=== PATIENT | female | born 1930 ===

== ENCOUNTER 2017-03-29 19:51 | Observation (INO) | payer MEDICARE, OTHER ==
[2017-03-29 19:51] VITALS: BMI 18.3
--- NOTE | 2017-03-29 20:39 | ED PDOC ---
HPI: Chest Pain Time Seen by Provider: 03/29/17 20:15 Chief Complaint (Nursing): Lower Extremity Problem/Injury History Per: Patient History/Exam Limitations: no limitations Onset/Duration Of Symptoms: Days Current Symptoms Are (Timing): Still Present Modifying Factors: None Additional Complaint(s): Hx of CABG, CAD w/ stent, HTN, HLD p/w intermittent palpitations for the past 3 days, chest pressure, occasional SOB, also w/ body aches in bilateral knees and arms. States she's been on muscle relaxant as prescribed by Dr. Gaviria without relief but has been suffering dizziness as well. States she's compliant with her medications. - Risk Factors TAD Risk Factors: Pos: Hypertension Past Medical History Reviewed: Historical Data, Nursing Documentation, Vital Signs Vital Signs: Last Vital Signs Temp 98.5 F 03/29/17 20:00 Pulse 68 03/29/17 21:58 Resp 17 03/29/17 20:00 BP 147/75 03/29/17 21:58 Pulse Ox 99 03/29/17 20:43 - Medical History PMH: Bronchitis, CAD, HTN, Hypercholesterolemia - Surgical History Surgical History: CABG, Pacemaker - Family History Family History: States: Unknown Family Hx - Home Medications Home Medications: Ambulatory Orders Medication Instructions Recorded Alprazolam [Alprazolam] 0.5 mg PO BID 06/18/14 Carvedilol Phosphate [Coreg Cr] 20 mg PO DAILY 06/18/14 Clopidogrel [Plavix] 81 mg PO DAILY 06/18/14 Esomeprazole Magnesium [Nexium] 40 mg PO DAILY 06/18/14 Ezetimibe [Zetia] 10 mg PO DAILY 06/18/14 Valsartan [Diovan] 80 mg PO DAILY 06/18/14 Aspirin [Treutlen Aspirin] 81 mg PO DAILY 07/27/16 Folic Acid [Folic Acid] 1 mg PO DAILY 07/27/16 Sertraline HCl [Zoloft] 25 mg PO DAILY 07/27/16 - Allergies Allergies/Adverse Reactions: Allergies Allergy/AdvReac Type Severity Reaction Status Date / Time iodine Allergy RASH Verified 03/29/17 20:05 CATHERINE Risk Score for UA/NSTEMI - CATHERINE Risk Score Age > 64: YES 3 or more CAD Risk Factors: YES Known CAD (Stenosis greater than 50%): YES Aspirin use in past 7 days: NO Severe Angina: NO EKG ST changes greater than 0.5mm: NO Positive Cardiac Marker: NO CATHERINE Score: 3 Risk %: 13% Curb-65 Severity Score - CURB-65 Severity Score Confusion: No Age >64: Yes Curb-65 Score: 1 Percentage 30-day mortality: 2.7% Review of Systems ROS Statement: Except As Marked, All Systems Reviewed And Found Negative Cardiovascular: Positive for: Chest Pain, Palpitations Respiratory: Positive for: Shortness of Breath Musculoskeletal: Positive for: Arm Pain, Leg Pain Physical Exam - Reviewed Nursing Documentation Reviewed: Yes Vital Signs Reviewed: Yes - Physical Exam Appears: Positive for: Well, Non-toxic, No Acute Distress Head Exam: Positive for: ATRAUMATIC, NORMAL INSPECTION, NORMOCEPHALIC Skin: Positive for: Normal Color, Warm, DRY Eye Exam: Positive for: EOMI, Normal appearance, PERRL ENT: Positive for: Normal ENT Inspection Neck: Positive for: Normal, Painless ROM Cardiovascular/Chest: Positive for: Regular Rate, Rhythm Respiratory: Positive for: CNT, Normal Breath Sounds Gastrointestinal/Abdominal: Positive for: Normal Exam, Bowel Sounds, Soft Back: Positive for: Normal Inspection Extremity: Positive for: Normal ROM Neurologic/Psych: Positive for: Alert, Oriented - Laboratory Results Result Diagrams: 03/29/17 20:45 03/29/17 20:45 - ECG ECG Rhythm: Positive for: Normal QRS, Normal ST Segment, Sinus Rhythm O2 Sat by Pulse Oximetry: 99 Pulse Ox Interpretation: Normal Medical Decision Making Medical Decision Making: PT. w/ multiple cardiac RF's p/w CP, SOB, palpitations, body aches. EKG NSR, no STEMI, Will check cardiac enzymes and admit for OBS for continuous telemetry monitoring and serial cardiac enzymes. Dr. Lloyd consulted, states patient has pain in pacemaker pulse generator area. Agrees to consult on patient. Will admit. Disposition - Clinical Impression Clinical Impression: Chest pain, Palpitations - Disposition Disposition Time: 22:30 Condition: STABLE
[2017-03-29 20:56] LABS: BASO # 0.1 K/uL (0.0-0.2); EOS # 0.1 K/uL (0.0-0.7); EOS % 1.4 % (0.0-4.0); HEMATOCRIT 35.3 % (34.0-47.0); LYMPH # 1.3 K/uL (1.0-4.3); LYMPH % 21.6 % (20.0-40.0); MEAN CELL VOLUME 91.1 fl (81.0-99.0); MEAN CORPUSCULAR HEMOGLOBIN 29.9 pg (27.0-31.0); MEAN CORPUSCULAR HGB CONC 32.9 g/dL (33.0-37.0); MEAN PLATELET VOLUME 8.5 fl (7.2-11.7); MONO # 0.5 K/uL (0.0-0.8); MONO % 8.3 % (0.0-10.0); NEUT % 67.7 % (50.0-75.0); NRBC % 0.1 % (0.0-0.0); RED CELL DISTRIBUTION WIDTH 13.2 % (11.5-14.5); WHITE BLOOD COUNT 5.8 K/uL (4.8-10.8)
[2017-03-29 21:07] LABS: PARTIAL THROMBOPLASTIN TIME 27.2 Seconds (25.6-37.1)
[2017-03-29 21:17] LABS: BLOOD UREA NITROGEN 16 mg/dl (7-17); CALCIUM 9.5 mg/dL (8.4-10.2); CARBON DIOXIDE 29 mmol/L (22-30); CHLORIDE 99 mmol/L (98-107); GFR AFRICAN-AMERICAN > 60; GLUCOSE,RANDOM 138 mg/dL (65-105); POTASSIUM 4.3 MMOL/L (3.6-5.0); SODIUM 137 mmol/l (132-148)
[2017-03-30 04:49] VITALS: O2SAT 99
[2017-03-30 05:21] LABS: RBC URINE 4 /hpf (0-3); URINE BILIRUBIN NEGATIVE (NEGATIVE); URINE BLOOD SMALL (NEGATIVE); URINE COLOR YELLOW (YELLOW); URINE GLUCOSE (UA) NEG (Normal); URINE KETONE NEGATIVE (NEGATIVE); URINE LEUKOCYTE ESTERASE NEG Leu/uL (Negative); URINE PROTEIN NEGATIVE (NEGATIVE); URINE UROBILINOGEN 0.2-1.0 mg/dL (0.2-1.0); WBC URINE 2 /hpf (0-5)
[2017-03-30 06:49] LABS: BASO % 0.6 % (0.0-2.0); EOS # 0.1 K/uL (0.0-0.7); EOS % 1.8 % (0.0-4.0); HEMATOCRIT 32.5 % (34.0-47.0); LYMPH # 1.2 K/uL (1.0-4.3); LYMPH % 21.1 % (20.0-40.0); MEAN CELL VOLUME 90.2 fl (81.0-99.0); MEAN CORPUSCULAR HEMOGLOBIN 30.3 pg (27.0-31.0); MEAN CORPUSCULAR HGB CONC 33.6 g/dL (33.0-37.0); MEAN PLATELET VOLUME 8.8 fl (7.2-11.7); MONO # 0.6 K/uL (0.0-0.8); MONO % 10.2 % (0.0-10.0); NEUT # 3.7 K/uL (1.8-7.0); NEUT % 66.3 % (50.0-75.0); RED CELL DISTRIBUTION WIDTH 13.1 % (11.5-14.5); WHITE BLOOD COUNT 5.6 K/uL (4.8-10.8)
[2017-03-30 06:51] LABS: ALB/GLOB RATIO 1.7 (1.0-2.1); ALKALINE PHOSPHATASE 59 U/L (38-126); ALT/SGPT 38 U/L (9-52); AST/SGOT 35 U/L (14-36); BILIRUBIN,TOTAL 0.3 mg/dl (0.2-1.3); BLOOD UREA NITROGEN 22 mg/dl (7-17); CALCIUM 9.3 mg/dL (8.4-10.2); CARBON DIOXIDE 29 mmol/L (22-30); CHLORIDE 102 mmol/L (98-107); CHOLESTEROL 156 mg/dL (0-199); GFR AFRICAN-AMERICAN > 60; GLUCOSE,RANDOM 99 mg/dL (65-105); POTASSIUM 4.6 MMOL/L (3.6-5.0); SODIUM 138 mmol/l (132-148); TOTAL PROTEIN 6.2 G/DL (6.3-8.2)
[2017-03-30 07:07] LABS: T4 6.76 ug/dl (5.5-11.0)
[2017-03-30 07:21] LABS: THYROID STIMULATING HORMONE 3.63 mIU/ML (0.46-4.68)
[2017-03-30 07:51] VITALS: RESP 18
[2017-03-30] MEDS ORDERED: Pantoprazole 40 mg EC Tab PO SCH (09:00)
[2017-03-30] MEDS ORDERED: VALSARTAN PO SCH (09:00)
[2017-03-30] MEDS ORDERED: ALPRAZOLAM 0.5 MG PO SCH (09:00)
[2017-03-30] MEDS ORDERED: CARVEDILOL PHOSPHATE 20 MG PO SCH (09:00)
--- NOTE | 2017-03-30 10:30 | CP.PCM.CON ---
History of Present Illness - History of Present Illness History of Present Illness: THE PATIENT IS AN 86 YEAR OLD FEMALE WITH A HISTORY OF CAD WITH AN OLD IWMI, CABGS, STENT INSERTIONS, DEFIBRILLATOR, HYPERTENSION, HYPERLIPIDEMIA, GERDS, OA AND ANXIETY. SHE ALWAYS HAD CHEST WALL PAIN AT THE PACEMAKER SURGICAL SITE SINCE IT WAS INSERTED AND OFTEN COMES TO THE OFFICE FOR THIS COMPLAINT. SHE NOW STATES THAT SHE WAS STARTED ON A NEW MUSCLE RELAXANT RECENTLY AND NOW HAS MANY COMPLAINTS INCLUDING DIZZINESS, HEADACHES, NECK PAIN, LEG PAIN AND SOME CHEST DISCOMFORT. SHE CAME TO THER ER WITH THESE COMPLAINTS AND WAS ADMITTED TO OBSERVATION. I FOLLOW HER IN THE OFFICE AND WAS ASKED TO SEE HER. Past Patient History - Past Social History Smoking Status: Never Smoked - CARDIAC Hx Hypercholesterolemia: Yes Hx Hypertension: Yes Hx Pacemaker: Yes - PULMONARY Hx Bronchitis: Yes - PSYCHIATRIC Hx Substance Use: No - SURGICAL HISTORY Hx Coronary Artery Bypass Graft: Yes Meds Allergies/Adverse Reactions: Allergies Allergy/AdvReac Type Severity Reaction Status Date / Time iodine Allergy RASH Verified 03/29/17 20:05 - Medications Medications: Current Medications Alprazolam (Xanax) 0.5 mg PO BID [facility] Last Admin: 03/30/17 09:18 Dose: 0.5 mg Aspirin (Aspirin Chewable) 81 mg PO DAILY [facility] Last Admin: 03/30/17 09:20 Dose: 81 mg Carvedilol (Coreg) 6.25 mg PO BID [facility] Last Admin: 03/30/17 09:18 Dose: 6.25 mg Clopidogrel Bisulfate (Plavix) 75 mg PO DAILY [facility] Last Admin: 03/30/17 09:19 Dose: 75 mg Ezetimibe (Zetia) 10 mg PO DAILY [facility] Last Admin: 03/30/17 09:18 Dose: 10 mg Folic Acid (Folic Acid) 1 mg PO DAILY [facility] Last Admin: 03/30/17 09:18 Dose: 1 mg Pantoprazole Sodium (Protonix Ec Tab) 40 mg PO DAILY [facility] Last Admin: 03/30/17 09:20 Dose: 40 mg Sertraline HCl (Zoloft) 25 mg PO DAILY [facility] Last Admin: 03/30/17 09:18 Dose: 25 mg Valsartan (Diovan) 160 mg PO DAILY [facility] Last Admin: 03/30/17 09:19 Dose: 160 mg Physical Exam - Respiratory Exam Respiratory Exam: Clear to Auscultation Bilateral - Cardiovascular Exam Cardiovascular Exam: REGULAR RHYTHM, +S1, +S2 Additional comments: CHEST WALL TENDERNESS OVER THE PACEMAKER SITE - Extremities Exam Extremities exam: Positive for: normal inspection - Additional Findings Additional findings: EKG NSR TROPONIN NORMAL Results - Vital Signs Recent Vital Signs: Last Vital Signs Temp 98.2 F 03/30/17 07:51 Pulse 62 03/30/17 09:18 Resp 18 03/30/17 07:51 BP 150/63 03/30/17 09:18 Pulse Ox 99 03/30/17 07:51 - Labs Result Diagrams: 03/30/17 05:20 03/30/17 05:20 Labs: Laboratory Results - last 24 hr 03/30/17 03/30/17 03/30/17 04:38 05:20 05:20 WBC 5.6 RBC 3.61 L Hgb 10.9 L Hct 32.5 L MCV 90.2 MCH 30.3 MCHC 33.6 RDW 13.1 Plt Count 121 L MPV 8.8 Neut % (Auto) 66.3 Lymph % (Auto) 21.1 Roane % (Auto) 10.2 H Eos % (Auto) 1.8 Baso % (Auto) 0.6 Neut # 3.7 Lymph # 1.2 Roane # 0.6 Eos # 0.1 Baso # 0.0 Sodium 138 Potassium 4.6 Chloride 102 Carbon Dioxide 29 Anion Gap 12 BUN 22 H Creatinine 0.8 Est GFR ( Amer) > 60 Est GFR (Non-Af Amer) > 60 Random Glucose 99 Calcium 9.3 Total Bilirubin 0.3 AST 35 ALT 38 Alkaline Phosphatase 59 Total Protein 6.2 L Albumin 3.9 Globulin 2.3 Albumin/Globulin Ratio 1.7 Triglycerides 63 Cholesterol 156 LDL Cholesterol Direct 91 HDL Cholesterol 54 Thyroxine (T4) 6.76 TSH 3rd Generation 3.63 Urine Color Yellow Urine Clarity Clear Urine pH 6.0 Ur Specific Calhoun 1.014 Urine Protein Negative Urine Glucose (UA) Neg Urine Ketones Negative Urine Blood Small Urine Nitrate Negative Urine Bilirubin Negative Urine Urobilinogen 0.2-1.0 Ur Leukocyte Esterase Neg Urine RBC (Auto) 4 H Urine Microscopic WBC 2 Ur Squamous Epith Cells < 1 Assessment & Plan - Assessment and Plan (Free Text) Assessment: CAD-STABLE CHRONIC CHEST WALL PAIN HYPERTENSION HYPERLIPIDEMIA ANXIETY Plan: CONTINUE O2, CARVEDILOL, ATORVASTATIN, ZETIA, ASPIRIN, CLOPIDOGREL OK TO DISCHARGE PATIENT FROM THE CARDIAC VIEWPOINT AND I WILL SEE HER IN THE NEAR FUTURE AND ARRANGE FOR AN OUT PATIENT STRESS TEST AND ECHOCARDIOGRAM
[2017-03-30 12:03] VITALS: BP 134/57; PULSE 71; TEMP 98.5
--- NOTE | 2017-03-30 15:23 | CP.PCM.HP ---
History of Present Illness - History of Present Illness History of Present Illness: CC: Multiple sites pain. 86 y/o F, came to ER [facility] on 03/29/17 c/o of Multiple sites pain, onset several days, increased 3 days NEGOTIATOR with no relief. Pt appear c/o of neck pain, associated to headache, legs and arms pain and cramping for one month Tx with Tizanidine with no relief. worsening symptoms: Dizziness, chest discomfort. Pt denied: Fver, chills, n/v/d, abdominal pain, urinary symptoms, SOB, CP, sick contact, recent travel. Pt with PMH: CAD with old IWMI, CABG, Stent x3, Defibrillator, HTN, Hyperlipidemia, GERD, O/A, Anxiety. Pt well known in the office of the Cardiology on consult, due to regular visits to his office with same complaints. EKG shows: Atrial Pace-rhythm with prolonged AV conduction. Present on Admission - Present on Admission Any Indicators Present on Admission: No Review of Systems - Constitutional Constitutional: Headache - EENT Eyes: Other (negative) Ears: Other (negative) Nose/Mouth/Throat: Other (negative) - Cardiovascular Cardiovascular: Other (negative) - Respiratory Respiratory: Other (negative) - Gastrointestinal Gastrointestinal: Cramping - Genitourinary Genitourinary: Other (negative) - Musculoskeletal Musculoskeletal: Arthralgias, Neck Pain (legs, arm pain), Other - Integumentary Integumentary: Other (negative) - Neurological Neurological: Dizziness, Headaches - Psychiatric Psychiatric: Anxiety - Endocrine Endocrine: Other (negative) - Hematologic/Lymphatic Hematologic: Other (negative) Past Patient History - Past Medical History & Family History Pertinent Family History: Unknown - Past Social History Smoking Status: Never Smoked Alcohol: None Drugs: Denies Home Situation {Lives}: Alone - CARDIAC Hx Cardiac Disorders: Yes Hx Hypercholesterolemia: Yes Hx Hypertension: Yes Hx Pacemaker: Yes - PULMONARY Hx Respiratory Disorders: Yes Hx Bronchitis: Yes - NEUROLOGICAL Hx Neurological Disorder: No - HEENT Hx HEENT Problems: No - RENAL Hx Chronic Kidney Disease: No - ENDOCRINE/METABOLIC Hx Endocrine Disorders: No - HEMATOLOGICAL/ONCOLOGICAL Hx Blood Disorders: No - INTEGUMENTARY Hx Dermatological Problems: No - MUSCULOSKELETAL/RHEUMATOLOGICAL Hx Musculoskeletal Disorders: Yes Hx Arthritis: Yes Hx Osteoarthritis: Yes - GASTROINTESTINAL Hx Gastrointestinal Disorders: Yes Hx Gastroesophageal Reflux: Yes - PSYCHIATRIC Hx Substance Use: No - SURGICAL HISTORY Hx Surgeries: Yes Hx Coronary Artery Bypass Graft: Yes Hx Coronary Stent: Yes Other/Comment: PPM - ANESTHESIA Hx Anesthesia: Yes Hx Anesthesia Reactions: No Meds Home Medications: Home Medication List Medication Instructions Recorded Confirmed Type Clopidogrel [Plavix] 75 mg PO DAILY #30 tab 03/30/17 Rx Valsartan [Diovan] 160 mg PO DAILY #30 tab 03/30/17 Rx Allergies/Adverse Reactions: Allergies Allergy/AdvReac Type Severity Reaction Status Date / Time iodine Allergy RASH Verified 03/29/17 20:05 Physical Exam - Constitutional Appears: Chronically Ill - Head Exam Head Exam: NORMAL INSPECTION - Eye Exam Eye Exam: PERRL - ENT Exam ENT Exam: Normal Oropharynx - Neck Exam Neck exam: Positive for: Normal Inspection - Cardiovascular Exam Cardiovascular Exam: REGULAR RHYTHM Additional comments: Chest wall tenderness over the pacemaker site - GI/Abdominal Exam GI & Abdominal Exam: Normal Bowel Sounds, Soft - Back Exam Back exam: NORMAL INSPECTION - Neurological Exam Neurological exam: Alert, Oriented x3 Additional comments: No motor sensory deficit. - Psychiatric Exam Psychiatric exam: Anxious - Skin Skin Exam: Warm Results - Vital Signs Recent Vital Signs: Last Vital Signs Temp 98.5 F 03/30/17 12:02 Pulse 71 03/30/17 12:02 Resp 18 03/30/17 12:02 BP 134/57 L 03/30/17 12:02 Pulse Ox 99 03/30/17 12:02 reviewed Chip - Labs Result Diagrams: 03/30/17 05:20 03/30/17 05:20 Labs: Laboratory Results - last 24 hr 03/30/17 03/30/17 03/30/17 04:38 05:20 05:20 WBC 5.6 RBC 3.61 L Hgb 10.9 L Hct 32.5 L MCV 90.2 MCH 30.3 MCHC 33.6 RDW 13.1 Plt Count 121 L MPV 8.8 Neut % (Auto) 66.3 Lymph % (Auto) 21.1 Schuyler % (Auto) 10.2 H Eos % (Auto) 1.8 Baso % (Auto) 0.6 Neut # 3.7 Lymph # 1.2 Schuyler # 0.6 Eos # 0.1 Baso # 0.0 Sodium 138 Potassium 4.6 Chloride 102 Carbon Dioxide 29 Anion Gap 12 BUN 22 H Creatinine 0.8 Est GFR ( Amer) > 60 Est GFR (Non-Af Amer) > 60 Random Glucose 99 Calcium 9.3 Total Bilirubin 0.3 AST 35 ALT 38 Alkaline Phosphatase 59 Troponin I Total Protein 6.2 L Albumin 3.9 Globulin 2.3 Albumin/Globulin Ratio 1.7 Triglycerides 63 Cholesterol 156 LDL Cholesterol Direct 91 HDL Cholesterol 54 Thyroxine (T4) 6.76 TSH 3rd Generation 3.63 Urine Color Yellow Urine Clarity Clear Urine pH 6.0 Ur Specific Advance 1.014 Urine Protein Negative Urine Glucose (UA) Neg Urine Ketones Negative Urine Blood Small Urine Nitrate Negative Urine Bilirubin Negative Urine Urobilinogen 0.2-1.0 Ur Leukocyte Esterase Neg Urine RBC (Auto) 4 H Urine Microscopic WBC 2 Ur Squamous Epith Cells < 1 03/30/17 10:37 WBC RBC Hgb Hct MCV MCH MCHC RDW Plt Count MPV Neut % (Auto) Lymph % (Auto) Schuyler % (Auto) Eos % (Auto) Baso % (Auto) Neut # Lymph # Schuyler # Eos # Baso # Sodium Potassium Chloride Carbon Dioxide Anion Gap BUN Creatinine Est GFR ( Amer) Est GFR (Non-Af Amer) Random Glucose Calcium Total Bilirubin AST ALT Alkaline Phosphatase Troponin I < 0.0120 Total Protein Albumin Globulin Albumin/Globulin Ratio Triglycerides Cholesterol LDL Cholesterol Direct HDL Cholesterol Thyroxine (T4) TSH 3rd Generation Urine Color Urine Clarity Urine pH Ur Specific Advance Urine Protein Urine Glucose (UA) Urine Ketones Urine Blood Urine Nitrate Urine Bilirubin Urine Urobilinogen Ur Leukocyte Esterase Urine RBC (Auto) Urine Microscopic WBC Ur Squamous Epith Cells reviewed J.P. - EKG Data EKG comments: reviewed J.P. Assessment & Plan (1) Chest wall pain Status: Chronic Priority: High (2) HTN (hypertension) Status: Chronic Priority: Medium (3) Pain of multiple sites Status: Chronic Priority: High (4) Hx of CABG Status: Chronic Priority: Medium (5) Anxiety Status: Acute Priority: High - Assessment and Plan (Free Text) Plan: Pt improved and stable to be discharged, see instruction medication shhet, f/u with Cardiology for Stress test and Echo as out Pt. - Date & Time Date: 03/30/17 Time: 12:40
--- NOTE | 2017-03-30 16:44 | CARD ---
APPROVED REPORT EKG Measurement Heart [id number] <Conclusion> Normal sinus rhythm Possible Left atrial enlargement Borderline ECG
--- NOTE | 2017-03-30 16:50 | CARD ---
APPROVED REPORT EKG Measurement Heart [id number] <Conclusion> Atrial-paced rhythm with prolonged AV conduction Abnormal ECG
== END 2017-03-30 14:46 | disposition home or self-care (01) ==
LOC: H.ER 19:51 → H.ERHOLD 21:57 → H.TEL 03-30 00:18
PROVIDERS: ADMIT Internal Medicine Pulmonary Disease; ATTEND Internal Medicine Pulmonary Disease
DX: R07.89 Other chest pain (principal); G89.29 Other chronic pain; E78.00 Pure hypercholesterolemia, unspecified; E78.5 Hyperlipidemia, unspecified; I10 Essential (primary) hypertension; I25.10 Atherosclerotic heart disease of native coronary artery without angina pectoris; K21.9 Gastro-esophageal reflux disease without esophagitis; F41.9 Anxiety disorder, unspecified; M19.90 Unspecified osteoarthritis, unspecified site; I25.2 Old myocardial infarction; Z95.5 Presence of coronary angioplasty implant and graft; Z95.1 Presence of aortocoronary bypass graft; Z95.810 Presence of automatic (implantable) cardiac defibrillator; Z91.041 Radiographic dye allergy status; Z79.02 Long term (current) use of antithrombotics/antiplatelets; Z79.82 Long term (current) use of aspirin
CPT/HCPCS: 36415; 71010; 80048; 80053; 80061; 81003; 83880; 84436; 84443; 84484; 85025; 85610; 85730; 93005; 96374; 99285; G0378; J1885

== ENCOUNTER 2018-01-28 12:49 | Emergency (ER) | payer MEDICARE, OTHER ==
[2018-01-28 12:50] VITALS: BMI 18.1
[2018-01-28 13:02] VITALS: BP 129/66; PULSE 62; RESP 16; TEMP 97.4; O2SAT 100
--- NOTE | 2018-01-28 14:20 | US ---
PROCEDURE: Venous Duplex Doppler examination of the right lower extremity. HISTORY: Right lower leg pain, calf pain. PRIORS: None. FINDINGS: 2-D, color and duplex Doppler analysis of the right lower extremity venous circulation using routine protocol from the femoral veins through the popliteal veins. Venous compressibility: Normal. Flow and augmentation patterns: Normal. Visualized veins upper third of calf: Normal. Thompson cyst: None. IMPRESSION: No sonographic or Doppler evidence for DVT in right lower extremity.
--- NOTE | 2018-01-28 15:29 | CT ---
PROCEDURE: CT Lumbar Spine without contrast HISTORY: Low back pain COMPARISON: None. TECHNIQUE: Axial computed tomography images were obtained of the lumbar spine without the use of intravenous contrast. Coronal and sagittal reformatted images were created and reviewed. Radiation dose: Total exam DLP = 257.65 mGy-cm. This CT exam was performed using one or more of the following dose reduction techniques: Automated exposure control, adjustment of the mA and/or kV according to patient size, and/or use of iterative reconstruction technique. FINDINGS: VERTEBRAE: There is 6 mm degenerative anterior listhesis of L4 on L5. There is diffuse bone demineralization. There is no acute fracture or spondylolysis. There is normal lumbar lordosis. DISCS/SPINAL CANAL/NEURAL FORAMINA: Evaluation of the discs, conus medullaris and nerve roots of cauda equina is limited on noncontrast CT examination. Allowing for this evaluation of the discs demonstrate: L1-2: Diffuse posterior disc bulge with superimposed right foraminal disc protrusion without spinal canal stenosis. Mild bilateral facet arthropathy contribute to moderate right and mild left neural foraminal narrowing. L2-3: Mild posterior disc bulge without central spinal canal stenosis. Moderate bilateral facet arthropathy contribute to mild neural foraminal narrowing. L3-4: Diffuse posterior disc bulge indents the ventral thecal sac and in conjunction with moderate ligamentum flavum infolding results in moderate spinal canal stenosis. Moderate bilateral facet arthropathy contribute to severe right and moderate left neural foraminal narrowing. . L4-5: Diffuse posterior disc bulge in conjunction with severe ligamentum flavum infolding results in severe spinal canal stenosis. Severe bilateral facet arthropathy contribute to severe neural foraminal narrowing. Also noted are postsurgical changes of left laminotomy. L5-S1: Diffuse posterior disc bulge indents the ventral thecal sac and results in mild spinal canal stenosis. Also noted are superimposed right foraminal and far lateral disc protrusions which slightly impinge on the exiting right L5 nerve root. Moderate bilateral facet arthropathy contribute to severe right and mild left neural foraminal narrowing. PARASPINAL SOFT TISSUES: The paraspinous soft tissues are normal. OTHER FINDINGS: There are nonobstructing stones in both kidneys the Sigmoid diverticulosis without CT evidence for acute diverticulitis. IMPRESSION: 1. No acute fracture or spondylolysis. 2. Multilevel degenerative disc disease, worse at L4-5 with severe spinal canal stenosis and severe bilateral neural foraminal narrowing. Also seen are postsurgical changes of left hemilaminotomy. 3. At L5-S1 diffuse posterior disc bulge with superimposed right foraminal and far lateral disc protrusions impinge on the exiting right L5 nerve root. Moderate bilateral facet arthropathy and ligamentum flavum infolding contribute to mild spinal canal stenosis, severe right and mild left neural foraminal narrowing. 4. Bilateral nonobstructing renal stones.
--- NOTE | 2018-01-28 16:09 | ED PDOC ---
HPI: Back Time Seen by Provider: 01/28/18 13:12 Chief Complaint (Nursing): Back Pain Chief Complaint (Provider): Back Pain History Per: Patient History/Exam Limitations: no limitations Onset/Duration Of Symptoms: Days Current Symptoms Are (Timing): Still Present Quality Of Discomfort: Sharp Severity: Severe Pain Scale Rating Of: 10 Previous Symptoms: None Additional Complaint(s): Claudette Reddy is an 87 year old female with a past medical history of hypertension and pacemaker, who is presenting to the ER for evaluation of lower back pain, radiating down the right leg, onset a few days ago. Patient states that she also is experiencing right calf pain and has been taking Motrin for her pain according to her PMD's instructions, but has experienced no relief of symptoms. She reports that her PMD also recommended getting an MRI. Patient denies any chest pain, shortness of breath, or fevers. PMD: Mehrdad Lloyd Past Medical History Reviewed: Historical Data, Nursing Documentation, Vital Signs Vital Signs: Last Vital Signs Temp 97.4 F L 01/28/18 12:58 Pulse 62 01/28/18 12:58 Resp 16 01/28/18 12:58 BP 129/66 01/28/18 12:58 Pulse Ox 100 01/28/18 12:58 - Medical History PMH: Arthritis, Bronchitis, CAD, HTN, Hypercholesterolemia Denies: Chronic Kidney Disease - Surgical History Surgical History: CABG, Coronary Stent, Pacemaker - Family History Family History: States: Unknown Family Hx - Home Medications Home Medications: Ambulatory Orders Medication Instructions Recorded Alprazolam 0.5 mg PO BID 06/18/14 Carvedilol Phosphate [Coreg Cr] 20 mg PO DAILY 06/18/14 Esomeprazole Magnesium [Nexium] 40 mg PO DAILY 06/18/14 Ezetimibe [Zetia] 10 mg PO DAILY 06/18/14 Aspirin [[place] Aspirin] 81 mg PO DAILY 07/27/16 Folic Acid 1 mg PO DAILY 07/27/16 Sertraline HCl [Zoloft] 25 mg PO DAILY 07/27/16 Clopidogrel [Plavix] 75 mg PO DAILY #30 tab 03/30/17 Valsartan [Diovan] 80 mg PO DAILY 05/31/17 Lidocaine 5% [Lidoderm] 1 ea TD Q12H #14 patch 01/28/18 traMADol [Ultram] 50 mg PO Q6H PRN #15 tab 01/28/18 - Allergies Allergies/Adverse Reactions: Allergies Allergy/AdvReac Type Severity Reaction Status Date / Time iodine Allergy RASH Verified 05/31/17 14:03 Review of Systems ROS Statement: Except As Marked, All Systems Reviewed And Found Negative Constitutional: Negative for: Fever Cardiovascular: Negative for: Chest Pain Respiratory: Negative for: Shortness of Breath Musculoskeletal: Positive for: Back Pain, Leg Pain (right leg and calf pain) Physical Exam - Reviewed Nursing Documentation Reviewed: Yes Vital Signs Reviewed: Yes - Physical Exam Appears: Positive for: Non-toxic, No Acute Distress Head Exam: Positive for: ATRAUMATIC, NORMAL INSPECTION, NORMOCEPHALIC Skin: Positive for: Normal Color Neck: Positive for: Normal, Painless ROM Cardiovascular/Chest: Positive for: Regular Rate, Rhythm. Negative for: Murmur Respiratory: Positive for: Normal Breath Sounds. Negative for: Respiratory Distress Back: Positive for: Normal Inspection, Vertebral Tenderness, Other (L spine tenderness) Extremity: Positive for: Calf Tenderness (right calf and leg), Other (pain with right leg raise) Neurologic/Psych: Positive for: Alert, Oriented. Negative for: Motor/Sensory Deficits - ECG O2 Sat by Pulse Oximetry: 100 (RA) Pulse Ox Interpretation: Normal Medical Decision Making Medical Decision Making: Time: 13:19 Plan: --CT Lumbar Spine --US Lower Extremity --Ultram [address] Lumbar Spine: IMPRESSION: 1. No acute fracture or spondylolysis. 2. Multilevel degenerative disc disease, worse at L4-5 with severe spinal canal stenosis and severe bilateral neural foraminal narrowing. Also seen are postsurgical changes of left hemilaminotomy. 3. At L5-S1 diffuse posterior disc bulge with superimposed right foraminal and far lateral disc protrusions impinge on the exiting right L5 nerve root. Moderate bilateral facet arthropathy and ligamentum flavum infolding contribute to mild spinal canal stenosis, severe right and mild left neural foraminal narrowing. 4. Bilateral nonobstructing renal stones. US Lower Extremity: IMPRESSION: No sonographic or Doppler evidence for DVT in right lower extremity. Scribe Attestation: Documented by Summer Ortega, acting as a scribe for Shweta Rose PA-C Provider Scribe Attestation: All medical record entries made by the Scribe were at my direction and personally dictated by me. I have reviewed the chart and agree that the record accurately reflects my personal performance of the history, physical exam, medical decision making, and the department course for this patient. I have also personally directed, reviewed, and agree with the discharge instructions and disposition. Disposition - Clinical Impression Clinical Impression: Sciatica, Herniated disc - Patient ED Disposition Is Patient to be Admitted: No Counseled Patient/Family Regarding: Diagnosis, Need For Followup, Rx Given - Disposition Disposition: Routine/Home Disposition Time: 16:41 Condition: GOOD Prescriptions: Lidocaine 5% [Lidoderm] 1 ea TD Q12H #14 patch traMADol [Ultram] 50 mg PO Q6H PRN #15 tab PRN Reason: Pain Instructions: Sciatica Forms: [employer] (Sammarinese)
== END 2018-01-28 16:48 | disposition home or self-care (01) ==
LOC: H.ER 12:49
DX: M54.31 Sciatica, right side (principal); E78.00 Pure hypercholesterolemia, unspecified; I10 Essential (primary) hypertension; M51.26 Other intervertebral disc displacement, lumbar region